=== PATIENT | male | born 1980 | race Caucasian/White ===

== ENCOUNTER 2018-01-07 06:46 | Emergency (ER) | payer OTHER ==
--- NOTE | 2018-01-07 07:45 | PHYS DOC ---
Past History Past Medical History: No Pertinent History Past Surgical History: Other Alcohol Use: None Drug Use: None Adult General Chief Complaint Chief Complaint: FINGER INJURY HPI HPI Patient is a 37 year old right handed male who presents with left index finger injury. Patient states he smashed his left finger between a heavy metal door had small puncture wound but is concern for possible fracture. Patient denies focal neuro deficit. Patient is up-to-date with tetanus immunization. Review of Systems Review of Systems Constitutional: Denies fever or chills [] Eyes: Denies change in visual acuity, redness, or eye pain [] HENT: Denies nasal congestion or sore throat [] Respiratory: Denies cough or shortness of breath [] Cardiovascular: No additional information not addressed in HPI [] GI: Denies abdominal pain, nausea, vomiting, bloody stools or diarrhea [] : Denies dysuria or hematuria [] Musculoskeletal: Denies back pain, reports joint pain [] Integument: Denies rash or skin lesions [] Neurologic: Denies headache, focal weakness or sensory changes [] Endocrine: Denies polyuria or polydipsia [] All other systems were reviewed and found to be within normal limits, except as documented in this note. Physical Exam Physical Exam Constitutional: Well developed, well nourished, no acute distress, non-toxic appearance. [] HENT: Normocephalic, atraumatic. Eyes: PERRLA, EOMI, conjunctiva normal, no discharge. [] Neck: Normal range of motion, no tenderness, supple, no stridor. [] Cardiovascular:Heart rate regular rhythm, no murmur [] Lungs & Thorax: Bilateral breath sounds clear to auscultation [] Skin: Warm, dry, no erythema, no rash. [] Back: No tenderness, no CVA tenderness. [] Extremities: Left index finger with puncture wound in the volar side of PIP joint with small contusion without neurovascular deficit, mild tenderness, no cyanosis, no clubbing, ROM intact, no edema. [] Neurologic: Alert and oriented X 3, normal motor function, normal sensory function, no focal deficits noted. [] Psychologic: Affect normal, judgement normal, mood normal. [] Current Patient Data Vital Signs Vital Signs Date Time Temp Pulse Resp B/P (MAP) Pulse Ox O2 Delivery O2 Flow Rate FiO2 01/07/18 06:50 98.5 98 18 95 Room Air EKG EKG [] Radiology/Procedures Radiology/[place] [address] IMAGING REPORT Signed PATIENT: SHELBI OLMOS ACCOUNT: [id number] : 1980 LOCATION: ER AGE: 37 SEX: M EXAM STATUS: REG ER ORD. PHYSICIAN: ELLIOTT PADILLA MD REASON: injury PROCEDURE: FINGER(S) LEFT Examination: FINGER(S) LEFT History: Finger swollen at center of 2nd digit. Puncture wound and swelling visible. Finger slammed into door apprx six hours ago
Comparison/Correlation: None Findings: Three-view left second digit x-ray exam was performed. This includes a PA view of the left hand. Joint spaces are normal. No acute fracture or bony destruction. Soft tissues are unremarkable with no radiopaque foreign body. No definite degenerative change. Impression: Normal left second digit 3 view x-ray exam. Electronically signed by: Sherif Yu MD (01/07/2018 7:54 AM) [facility] DICTATED AND SIGNED BY: SHERIF YU MD DATE: 01/07/18 0752 CC: ABISAI THRASHER PA-C; ELLIOTT PADILLA MD ~ Course & Med Decision Making Course & Med Decision Making Evaluation of patient in ER showed 37-year-old male patient with injury to left index finger. Patient had a puncture wound with unremarkable x-ray of finger. Wound dressing was applied and patient instructed to take [id number] Tylenol or ibuprofen as needed. Dragon Disclaimer Dragon Disclaimer This electronic medical record was generated, in whole or in part, using a voice recognition dictation system. Departure Departure: Impression: Primary Impression: Contusion of left index finger Disposition: 01 HOME, SELF-CARE (@ 0745) Condition: STABLE Referrals: ABISAI THRASHER PA-C (PCP) Patient Instructions: Hand Contusion Additional Instructions: Apply ice on the affected area Follow-up with your primary care physician in 3-5 days Return to ER if not getting better May take [id number] ibuprofen and Tylenol as needed for pain ELLIOTT PADILLA MD Jan 07, 2018 07:45
[2018-01-07 07:50] VITALS: BP 130/109
--- NOTE | 2018-01-07 07:57 | RAD ---
Examination: FINGER(S) LEFT History: Finger swollen at center of 2nd digit. Puncture wound and swelling visible. Finger slammed into door apprx six hours ago
Comparison/Correlation: None Findings: Three-view left second digit x-ray exam was performed. This includes a PA view of the left hand. Joint spaces are normal. No acute fracture or bony destruction. Soft tissues are unremarkable with no radiopaque foreign body. No definite degenerative change. Impression: Normal left second digit 3 view x-ray exam. Electronically signed by: Sherif Osborn MD (01/07/2018 7:54 AM) [facility]
== END 2018-01-07 07:57 | disposition home or self-care (01) ==
LOC: ER 06:46
DX: S60.022A Contusion of left index finger without damage to nail, initial encounter (principal); S61.231A Puncture wound without foreign body of left index finger without damage to nail, initial encounter; W23.0XXA Caught, crushed, jammed, or pinched between moving objects, initial encounter; Y93.89 Activity, other specified; Y92.89 Other specified places as the place of occurrence of the external cause; Y99.8 Other external cause status
CPT/HCPCS: 29130; 73140; 99284